=== PATIENT | female | born 1990 ===

== ENCOUNTER 2018-08-22 01:59 | Inpatient (IN) | payer OTHER ==
[2018-08-22] MEDS ORDERED: Sodium Chloride 0.9% 2.5 ML Syringe FLUSH PRN (03:02)
[2018-08-22] MEDS ORDERED: Tranexamic Acid 1,000 MG in Sodium Chloride 0.9% 100 ML IV PRN (03:02)
[2018-08-22] MEDS ORDERED: Carboprost Tromethamine 250 MCG/1 ML Amp IM PRN (03:02)
[2018-08-22] MEDS ORDERED: Sodium Chloride 0.9% 10 ML SDV IV PRN (03:02)
[2018-08-22] MEDS ORDERED: Sodium Chloride 0.9% 10 ML Syringe FLUSH PRN (03:02)
[2018-08-22] MEDS ORDERED: Misoprostol 200 MCG Tab PO PRN (03:02)
[2018-08-22] MEDS ORDERED: Butorphanol 1 MG/ML SDV IVPUSH PRN (03:02)
[2018-08-22] MEDS ORDERED: Nalbuphine 10 MG/1 ML Vial IVPUSH PRN (03:02)
[2018-08-22] MEDS ORDERED: Lidocaine 1% 50 ML MDV INJECT PRN (03:02)
[2018-08-22] MEDS ORDERED: Terbutaline 1 MG/ML SDV SUBCUT PRN (03:02)
[2018-08-22] MEDS ORDERED: Methylergonovine 0.2 MG/1 ML Amp IM PRN (03:02)
[2018-08-22] MEDS ORDERED: Water For Irrigation,Sterile 1,000 ML Container IRR PRN (03:02)
[2018-08-22] MEDS ORDERED: Ampicillin 2 GM in Sodium Chloride 0.9% 100 ML IV ONE (03:02)
[2018-08-22] MEDS ORDERED: Misoprostol 25 MCG (1/4 of 100 MCG) Tab VAG PRN ×2 (03:02)
[2018-08-22] MEDS ORDERED: Misoprostol 50 MCG (1/2 of 100 MCG) Tab VAG ONE (03:05)
[2018-08-22] MEDS ORDERED: Oxytocin/0.9 % Sodium Chloride 30 UNIT/500 ML BAG IV SCH ×2 (03:15)
[2018-08-22] MEDS: Lactated Ringers 1,000 ML IV SCH ×2 (03:35→04:48)
--- NOTE | 2018-08-22 04:30 | PCM.LDHP ---
L&D History of Present Illness - General Date of Service: 08/22/18 Admit Problem/Dx: Patient Status Order with Admit Dx/Problem 08/22/18 03:02 Patient Status [ADT] Routine Admission Diagnosis/Problem Admission Diagnosis/Problem Source of Information: Patient History Limitations: Reports: No Limitations - History of Present Illness Pain Score: 10 Improves with: Reports: None Worsens with: Reports: None Associated Symptoms: Reports: N - Related Data Allergies/Adverse Reactions: Allergies Allergy/AdvReac Type Severity Reaction Status Date / Time No Known Allergies Allergy Verified 08/22/18 03:17 H&P Review of Systems - Review of Systems: Review Of Systems: See Below General: Reports: No Symptoms HEENT: Reports: No Symptoms Pulmonary: Reports: No Symptoms Cardiovascular: Reports: No Symptoms Gastrointestinal: Reports: No Symptoms Genitourinary: Reports: No Symptoms Musculoskeletal: Reports: No Symptoms Skin: Reports: No Symptoms Psychiatric: Reports: No Symptoms Neurological: Reports: No Symptoms Hematologic/Lymphatic: Reports: No Symptoms Immunologic: Reports: No Symptoms L&D Exam - Exam Exam: See Below - Vital Signs Weight: 92.986 kg - OB Specific Fundal Height In cm: 37 Contraction Intensity: Moderate Movement: Active Heart Tones: Present Presentation: Vertex - Rivas Score Rivas Score Cervix Position: Anterior Rivas Score Consistency: Medium Rivas Score Effacement: 51-70% Rivas Score Dilation: 3-4 cm Rivas Score 's Station: -3 Rivas Score Total: 7 - Exam General: Alert, Oriented HEENT: PERRLA, Conjunctiva Clear, EACs Clear, EOMI, Hearing Intact, Mucosa Moist & [place], Nares Patent, Normal Nasal Septum, Posterior Pharynx Clear, TMs Clear Neck: Supple, Trachea Midline Lungs: Clear to Auscultation, Normal Respiratory Effort Cardiovascular: Regular Rate, Regular Rhythm GI/Abdominal Exam: Normal Bowel Sounds, Soft, Non-Tender, No Organomegaly, No Distention, No Abnormal Bruit, No Mass, Pelvis Stable Rectal Exam: Normal Exam, Normal Rectal Tone Genitourinary: Normal external exam, Normal bimanual exam, Normal speculum exam Back Exam: Normal Inspection, Full Range of Motion Extremities: Normal Inspection, Normal Range of Motion, Non-Tender, No Pedal Edema, Normal Capillary Refill Skin: Warm, Dry, Intact Neurological: Cranial Nerves Intact, Reflexes Equal Bilateral Psychiatric: Alert, Normal Affect, Normal Mood - Patient Data Lab Results Last 24 hrs: Laboratory Results - last 24 hr 08/22/18 Range/Units 03:25 WBC 10.03 (4.0-11.0) K/uL RBC 4.22 L (4.30-5.90) M/uL Hgb 12.5 (12.0-16.0) g/dL Hct 37.2 (36.0-46.0) % MCV 88.2 (80.0-98.0) fL MCH 29.6 (27.0-32.0) pg MCHC 33.6 (31.0-37.0) g/dL RDW Std Deviation 45.1 (28.0-62.0) fl RDW Coeff of [place] 14 (11.0-15.0) % Plt Count 244 (150-400) K/uL MPV 10.60 (7.40-12.00) fL Nucleated RBC % 0.0 /100WBC Nucleated RBCs # 0 K/uL Result Diagrams: 08/22/18 03:25 Problem List Initiated/Reviewed/Updated: Yes Orders Last 24hrs: Active Orders 24 hr Category Date Time Status Patient Status [ADT] Routine ADT 08/22/18 03:02 Active Bedrest Bathroom Privileges [RC] ASDIRECTED Care 08/22/18 03:02 Active Communication Order [RC] ASDIRECTED Care 08/22/18 03:02 Active Communication Order [RC] ASDIRECTED Care 08/22/18 03:02 Active Communication Order [RC] ASDIRECTED Care 08/22/18 03:02 Active Heart Tones [RC] CONTINUOUS Care 08/22/18 03:02 Active Non Stress Test [RC] PER UNIT ROUTINE Care 08/22/18 03:02 Active May Shower [RC] ASDIRECTED Care 08/22/18 03:02 Active Notify Provider [RC] PRN Care 08/22/18 03:02 Active Notify Provider [RC] PRN Care 08/22/18 03:02 Active Notify Provider [RC] PRN Care 08/22/18 03:02 Active Notify Provider [RC] STAT Care 08/22/18 03:02 Active Oxygen Therapy [RC] ASDIRECTED Care 08/22/18 03:02 Active Up ad Swathi [RC] ASDIRECTED Care 08/22/18 03:02 Active Vaginal Exam [RC] PRN Care 08/22/18 03:02 Active Vaginal Exam [RC] PRN Care 08/22/18 03:02 Active Vital Signs [RC] PER UNIT ROUTINE Care 08/22/18 03:02 Active Vital Signs [RC] PER UNIT ROUTINE Care 08/22/18 03:02 Active TYPE AND SCREEN [BBK] Routine Lab 08/22/18 03:25 Received Ampicillin 1 gm Med 08/22/18 07:00 Active Sodium Chloride 0.9% [Normal Saline] 50 ml IV Q4H Butorphanol [Stadol] Med 08/22/18 03:02 Active 1 mg IVPUSH Q1H PRN Carboprost Tromethamine [Hemabate DS] Med 08/22/18 03:02 Active 250 mcg IM ASDIRECTED PRN Lactated Ringers [Ringers, Lactated] 1,000 ml Med 08/22/18 03:15 Active IV ASDIRECTED Lidocaine 1% [Xylocaine 1%] Med 08/22/18 03:02 Active 50 ml INJECT ONETIME PRN Methylergonovine [Methergine] Med 08/22/18 03:02 Active 0.2 mg IM ASDIRECTED PRN Nalbuphine [Nubain] Med 08/22/18 03:02 Active 10 mg IVPUSH Q1H PRN Oxytocin/0.9 % Sodium Chloride [Oxytocin 30 Unit/500 ML Med 08/22/18 03:15 Active -NS] 30 unit in 500 ml IV TITRATE Oxytocin/0.9 % Sodium Chloride [Oxytocin 30 Unit/500 ML Med 08/22/18 03:15 Active -NS] 30 unit in 500 ml IV TITRATE Sodium Chloride 0.9% [Normal Saline] Med 08/22/18 03:02 Active 10 ml IV ASDIRECTED PRN Sodium Chloride 0.9% [Saline Flush] Med 08/22/18 03:02 Active 10 ml FLUSH ASDIRECTED PRN Sodium Chloride 0.9% [Saline Flush] Med 08/22/18 03:02 Active 2.5 ml FLUSH ASDIRECTED PRN Terbutaline [Brethine] Med 08/22/18 03:02 Active 0.25 mg SUBCUT ASDIRECTED PRN Tranexamic Acid [Cyklokapron] 1,000 mg Med 08/22/18 03:02 Active Sodium Chloride 0.9% [Normal Saline] 100 ml IV ONETIME Water For Irrigation,Sterile [Sterile Water for Med 08/22/18 03:02 Active Irrigation] 1,000 ml IRR ASDIRECTED PRN miSOPROStol [Cytotec] Med 08/22/18 03:02 Active 200 mcg PO ONETIME PRN miSOPROStol [Cytotec] Med 08/22/18 03:02 Active 25 mcg VAG ONETIME PRN miSOPROStol [Cytotec] Med 08/22/18 07:15 Active 25 mcg VAG Q4H miSOPROStol [Cytotec] Med 08/22/18 03:02 Active 25 mcg VAG Q4H PRN Scalp Electrode [WOMSER] Per Unit Routine Oth 08/22/18 03:02 Ordered Medication Administration Instruction [OM.PC] Q3H Oth 08/22/18 03:15 Ordered Peripheral IV Insertion Adult [OM.PC] Routine Oth 08/22/18 03:02 Ordered Resuscitation Status Routine Resus Stat 08/22/18 03:02 Ordered Medication Orders Butorphanol Tartrate (Stadol) 1 mg IVPUSH Q1H PRN PRN Reason: Pain Last Admin: 08/22/18 03:36 Dose: 1 mg Carboprost Tromethamine (Hemabate Ds) 250 mcg IM ASDIRECTED PRN PRN Reason: Post Hemorrhage Ampicillin Sodium 1 gm/ Sodium (Chloride) 50 mls @ 100 mls/hr IV Q4H [facility] Lactated Ringer's (Ringers, Lactated) 1,000 mls @ 150 mls/hr IV ASDIRECTED [facility] Last Admin: 08/22/18 03:35 Dose: 150 mls/hr Oxytocin/Sodium Chloride (Oxytocin 30 Unit/500 Ml-Ns) 30 unit in 500 mls @ 555 mls/hr IV TITRATE [facility] Oxytocin/Sodium Chloride (Oxytocin 30 Unit/500 Ml-Ns) 30 unit in 500 mls @ 2 mls/hr IV TITRATE [facility]; Protocol Tranexamic Acid 1,000 mg/ (Sodium Chloride) 110 mls @ 660 mls/hr IV ONETIME PRN PRN Reason: Bleeding Lidocaine HCl (Xylocaine 1%) 50 ml INJECT ONETIME PRN PRN Reason: Laceration repair Methylergonovine Maleate (Methergine) 0.2 mg IM ASDIRECTED PRN PRN Reason: Post Hemorrhage Misoprostol (Cytotec) 200 mcg PO ONETIME PRN PRN Reason: Post Hemorrhage Misoprostol (Cytotec) 25 mcg VAG ONETIME PRN PRN Reason: Cervical Ripening Misoprostol (Cytotec) 25 mcg VAG Q4H PRN PRN Reason: Cervical Ripening Misoprostol (Cytotec) 25 mcg VAG Q4H [facility] Nalbuphine HCl (Nubain) 10 mg IVPUSH Q1H PRN PRN Reason: Pain (severe 7-10) Sodium Chloride (Saline Flush) 10 ml FLUSH ASDIRECTED PRN PRN Reason: Keep Vein Open Sodium Chloride (Saline Flush) 2.5 ml FLUSH ASDIRECTED PRN PRN Reason: Keep Vein Open Sodium Chloride (Normal Saline) 10 ml IV ASDIRECTED PRN PRN Reason: IV Use Sterile Water (Sterile Water For Irrigation) 1,000 ml IRR ASDIRECTED PRN PRN Reason: delivery Terbutaline Sulfate (Brethine) 0.25 mg SUBCUT ASDIRECTED PRN PRN Reason: Tacysystole Assessment/Plan Comment:: 38wks in early labor. SROM in early active labor.
[2018-08-22] MEDS ORDERED: Ropivacaine HCl/PF 100 ML ONE (05:26)
[2018-08-22] MEDS ORDERED: fentaNYL 100 MCG/2 ML SDV ONE (05:27)
[2018-08-22] MEDS ORDERED: Lidocaine HCl/EPINEPHrine 5 ML IJ ONE (05:27)
[2018-08-22] MEDS ORDERED: Ropivacaine 0.2% 2 MG/ML 20 ML SDV ONE (05:27)
--- NOTE | 2018-08-22 06:35 | PCM.PREANE ---
Preanesthetic Assessment - Anesthesia/Transfusion/Family Hx Anesthesia History: No Prior Anesthesia Family History of Anesthesia Reaction: No - Review of Systems General: No Symptoms Pulmonary: No Symptoms Cardiovascular: No Symptoms Gastrointestinal: No Symptoms Neurological: No Symptoms Other: Reports: None (Denies any personal or family hx of bleeding or clotting problems) - Physical Assessment Height: 1.73 m Weight: 92.986 kg ASA Class: 2 Mental Status: Alert & Oriented x3 Dentition: Reports: Normal Dentition ROM/Head Extension: Full - Lab Values: Laboratory Last Values WBC 10.03 K/uL (4.0-11.0) 08/22/18 03:25 RBC 4.22 M/uL (4.30-5.90) L 08/22/18 03:25 Hgb 12.5 g/dL (12.0-16.0) 08/22/18 03:25 Hct 37.2 % (36.0-46.0) 08/22/18 03:25 MCV 88.2 fL (80.0-98.0) 08/22/18 03:25 MCH 29.6 pg (27.0-32.0) 08/22/18 03:25 MCHC 33.6 g/dL (31.0-37.0) 08/22/18 03:25 RDW Std Deviation 45.1 fl (28.0-62.0) 08/22/18 03:25 RDW Coeff of [place] 14 % (11.0-15.0) 08/22/18 03:25 Plt Count 244 K/uL (150-400) 08/22/18 03:25 MPV 10.60 fL (7.40-12.00) 08/22/18 03:25 Nucleated RBC % 0.0 /100WBC 08/22/18 03:25 Nucleated RBCs # 0 K/uL 08/22/18 03:25 Blood Type O POSITIVE 08/22/18 03:25 Antibody Screen NEGATIVE 08/22/18 03:25 - Allergies Allergies/Adverse Reactions: Allergies Allergy/AdvReac Type Severity Reaction Status Date / Time No Known Allergies Allergy Verified 08/22/18 03:17 - Anesthesia Plan Free Text/Narrative:: Patient is continually screaming and out of control and very difficult to talk to. She understands that this epidural cannot be done if she cannot sit still and importance of safety stressed to patient. - Acknowledgements Anesthesia Type Planned: Epidural Pt an Appropriate Candidate for the Planned Anesthesia: Yes Alternatives and Risks of Anesthesia Discussed w Pt/Guardian: Yes Pt/Guardian Understands and Agrees with Anesthesia Plan: Yes PreAnesthesia Questionnaire - CURRENT (IN HOUSE) MEDS Current Meds: Current Medications Butorphanol Tartrate (Stadol) 1 mg IVPUSH Q1H PRN PRN Reason: Pain Last Admin: 08/22/18 03:36 Dose: 1 mg Carboprost Tromethamine (Hemabate Ds) 250 mcg IM ASDIRECTED PRN PRN Reason: Post Hemorrhage Ampicillin Sodium 1 gm/ Sodium (Chloride) 50 mls @ 100 mls/hr IV Q4H [facility] Lactated Ringer's (Ringers, Lactated) 1,000 mls @ 150 mls/hr IV ASDIRECTED [facility] Last Admin: 08/22/18 04:48 Dose: 999 mls/hr Oxytocin/Sodium Chloride (Oxytocin 30 Unit/500 Ml-Ns) 30 unit in 500 mls @ 555 mls/hr IV TITRATE [facility] Oxytocin/Sodium Chloride (Oxytocin 30 Unit/500 Ml-Ns) 30 unit in 500 mls @ 2 mls/hr IV TITRATE [facility]; Protocol Tranexamic Acid 1,000 mg/ (Sodium Chloride) 110 mls @ 660 mls/hr IV ONETIME PRN PRN Reason: Bleeding Lidocaine HCl (Xylocaine 1%) 50 ml INJECT ONETIME PRN PRN Reason: Laceration repair Methylergonovine Maleate (Methergine) 0.2 mg IM ASDIRECTED PRN PRN Reason: Post Hemorrhage Misoprostol (Cytotec) 200 mcg PO ONETIME PRN PRN Reason: Post Hemorrhage Misoprostol (Cytotec) 25 mcg VAG ONETIME PRN PRN Reason: Cervical Ripening Misoprostol (Cytotec) 25 mcg VAG Q4H PRN PRN Reason: Cervical Ripening Misoprostol (Cytotec) 25 mcg VAG Q4H [facility] Nalbuphine HCl (Nubain) 10 mg IVPUSH Q1H PRN PRN Reason: Pain (severe 7-10) Last Admin: 08/22/18 04:48 Dose: 10 mg Sodium Chloride (Saline Flush) 10 ml FLUSH ASDIRECTED PRN PRN Reason: Keep Vein Open Sodium Chloride (Saline Flush) 2.5 ml FLUSH ASDIRECTED PRN PRN Reason: Keep Vein Open Sodium Chloride (Normal Saline) 10 ml IV ASDIRECTED PRN PRN Reason: IV Use Sterile Water (Sterile Water For Irrigation) 1,000 ml IRR ASDIRECTED PRN PRN Reason: delivery Terbutaline Sulfate (Brethine) 0.25 mg SUBCUT ASDIRECTED PRN PRN Reason: Tacysystole Discontinued Medications Fentanyl (Sublimaze) Confirm Administered Dose 300 mcg .ROUTE .STK-MED ONE Stop: 08/22/18 05:28 Ampicillin Sodium 2 gm/ Sodium (Chloride) 100 mls @ 200 mls/hr IV ONETIME ONE Stop: 08/22/18 03:31 Last Admin: 08/22/18 03:44 Dose: 200 mls/hr Ropivacaine (Naropin 0.2%) Confirm Administered Dose 100 mls @ as directed .ROUTE .STK-MED ONE Stop: 08/22/18 05:27 Lidocaine/Epinephrine (Lidocaine 1.5%-Epi 1:200,000) Confirm Administered Dose 5 ml IJ .STK-MED ONE Stop: 08/22/18 05:28 Misoprostol (Cytotec) 25 mcg VAG ONETIME ONE Stop: 08/22/18 03:06 Ropivacaine (Naropin 0.2%) Confirm Administered Dose 20 ml .ROUTE .STK-MED ONE Stop: 08/22/18 05:28
[2018-08-22] MEDS ORDERED: Docusate Sodium 100 MG Cap PO PRN (07:26)
[2018-08-22] MEDS ORDERED: Bisacodyl 10 MG Supp RECTAL PRN (07:26)
[2018-08-22] MEDS ORDERED: oxyCODONE 5 MG Tab PO PRN (07:26)
[2018-08-22] MEDS ORDERED: Ibuprofen 400 MG Tab PO PRN (07:26)
--- NOTE | 2018-08-22 08:24 | OR ---
SURGEON: Nawaf Cedillo MD DATE OF PROCEDURE: Ms. Walker is 28-year-old. She is para 1-0-0-1. She followed most of her in the [facility]. The patient transferred her care to us recently. I only saw her in the office 1 time, and at that time, we did a GBS status. I reviewed her record. Her record was adequate. The patient is 37 plus weeks. She has presented to Labor and Delivery with a spontaneous rupture of the membrane which is confirmed and regular contraction. Since GBS status at the time of admission could not be confirmed, the patient was started on antibiotic appropriately, and at the time of admission, she was 3 cm, complete vertex, and -2. She had epidural anesthesia for labor analgesia. She was able then to progress to complete, complete, +2. The patient had a very dense epidural. She was unable to push adequately, so I helped the patient using the Kiwi vacuum extraction. With her minimum pushing and me pulling, we were able to accomplish normal spontaneous vaginal delivery of a male fetus, cried immediately. score reported to be 8 and 9 and weight is not available at this time. The placenta delivered spontaneous, complete, and intact without any problem and there was no perineal, labial laceration. Episiotomy was not needed. Estimated blood loss was 250 to 300 mL. heart rate was category I through the entire process of labor. There was no complication in the labor and delivery process. SAMIR / JOSE /[id number]
[2018-08-22] MEDS: Ibuprofen 800 MG Tab PO PRN ×2 (09:42→19:55)
[2018-08-22] MEDS: Acetaminophen 500 MG Tab PO PRN (09:43)
[2018-08-22] MEDS: Benzocaine/Menthol 20%-0.5% Spray 78 GM Cannister TOP PRN (13:05)
[2018-08-22] MEDS: Witch Hazel Medicated Pads 40/Jar TOP PRN (13:06)
[2018-08-22] MEDS: Misoprostol 50 MCG (1/2 of 100 MCG) Tab VAG SCH ×3 (19:12→20:23)
[2018-08-22] MEDS: Ampicillin 1 GM in Sodium Chloride 0.9% 50 ML IV SCH (19:12)
[2018-08-22] MEDS: Lanolin 100% Cream 7 GM Tube TOP PRN (19:56)
[2018-08-23] MEDS: Ampicillin 1 GM in Sodium Chloride 0.9% 50 ML IV SCH (01:46)
[2018-08-23] MEDS: Misoprostol 50 MCG (1/2 of 100 MCG) Tab VAG SCH (01:47)
--- NOTE | 2018-08-23 09:13 | PCM.DCSUM1 ---
Discharge Summary - Hospital Course Diagnosis: Stroke: No - Discharge Data Discharge Date: 08/23/18 Discharge Disposition: Home, Self-Care 01 Condition: Good - Patient Instructions Diet: Usual Diet as Tolerated Driving: Do Not Drive Showering/Bathing: October Shower - Discharge Plan Referrals: Wily Malik,Alyson [Ordering Only Provider] - Nawaf Cedillo MD [Physician] - 10/03/18 10:45 am - Discharge Summary/Plan Comment DC Time >30 min.: Yes - General Info Date of Service: 08/23/18 Functional Status: Reports: Pain Controlled - Review of Systems General: Reports: No Symptoms HEENT: Reports: No Symptoms Pulmonary: Reports: No Symptoms Cardiovascular: Reports: No Symptoms Gastrointestinal: Reports: No Symptoms Genitourinary: Reports: No Symptoms Musculoskeletal: Reports: No Symptoms Skin: Reports: No Symptoms Neurological: Reports: No Symptoms Psychiatric: Reports: No Symptoms - Patient Data Vitals - Most Recent: Last Vital Signs Temp 36.8 C 08/23/18 04:26 Pulse 66 08/23/18 07:42 Resp 18 08/23/18 07:42 BP 122/58 L 08/23/18 07:42 Pulse Ox 96 08/23/18 07:42 Weight - Most Recent: 92.986 kg Med Orders - Current: Current Medications Acetaminophen (Tylenol Extra Strength) 500 mg PO Q4H PRN PRN Reason: Pain Last Admin: 08/22/18 09:43 Dose: 500 mg Acetaminophen (Tylenol Extra Strength) 1,000 mg PO Q4H PRN PRN Reason: Pain Benzocaine/Menthol (Dermoplast Pain Relief 20%-0.5% [place]) 78 gm TOP ASDIRECTED PRN PRN Reason: Perineal Comfort Measure Last Admin: 08/22/18 13:05 Dose: 1 tub Bisacodyl (Dulcolax) 10 mg RECTAL ONETIME PRN PRN Reason: Constipation Butorphanol Tartrate (Stadol) 1 mg IVPUSH Q1H PRN PRN Reason: Pain Last Admin: 08/22/18 03:36 Dose: 1 mg Carboprost Tromethamine (Hemabate Ds) 250 mcg IM ASDIRECTED PRN PRN Reason: Post Hemorrhage Docusate Sodium (Colace) 100 mg PO BID PRN PRN Reason: Constipation Emollient Ointment (Lansinoh Hpa) 0 gm TOP ASDIRECTED PRN PRN Reason: Sore Nipples Last Admin: 08/22/18 19:56 Dose: 1 tube Ampicillin Sodium 1 gm/ Sodium (Chloride) 50 mls @ 100 mls/hr IV Q4H [facility] Last Admin: 08/23/18 01:46 Dose: Not Given Lactated Ringer's (Ringers, Lactated) 1,000 mls @ 150 mls/hr IV ASDIRECTED [facility] Last Admin: 08/22/18 04:48 Dose: 999 mls/hr Oxytocin/Sodium Chloride (Oxytocin 30 Unit/500 Ml-Ns) 30 unit in 500 mls @ 555 mls/hr IV TITRATE [facility] Last Admin: 08/22/18 07:22 Dose: 555 mls/hr Oxytocin/Sodium Chloride (Oxytocin 30 Unit/500 Ml-Ns) 30 unit in 500 mls @ 2 mls/hr IV TITRATE [facility]; Protocol Tranexamic Acid 1,000 mg/ (Sodium Chloride) 110 mls @ 660 mls/hr IV ONETIME PRN PRN Reason: Bleeding Ibuprofen (Motrin) 400 mg PO Q4H PRN PRN Reason: Pain Ibuprofen (Motrin) 800 mg PO Q6H PRN PRN Reason: Pain Last Admin: 08/22/18 19:55 Dose: 800 mg Lidocaine HCl (Xylocaine 1%) 50 ml INJECT ONETIME PRN PRN Reason: Laceration repair Methylergonovine Maleate (Methergine) 0.2 mg IM ASDIRECTED PRN PRN Reason: Post Hemorrhage Misoprostol (Cytotec) 200 mcg PO ONETIME PRN PRN Reason: Post Hemorrhage Misoprostol (Cytotec) 25 mcg VAG ONETIME PRN PRN Reason: Cervical Ripening Misoprostol (Cytotec) 25 mcg VAG Q4H PRN PRN Reason: Cervical Ripening Misoprostol (Cytotec) 25 mcg VAG Q4H [facility] Last Admin: 08/23/18 01:47 Dose: Not Given Nalbuphine HCl (Nubain) 10 mg IVPUSH Q1H PRN PRN Reason: Pain (severe 7-10) Last Admin: 08/22/18 04:48 Dose: 10 mg Oxycodone HCl (Oxycodone) 5 mg PO Q2H PRN PRN Reason: Pain Sodium Chloride (Saline Flush) 10 ml FLUSH ASDIRECTED PRN PRN Reason: Keep Vein Open Sodium Chloride (Saline Flush) 2.5 ml FLUSH ASDIRECTED PRN PRN Reason: Keep Vein Open Sodium Chloride (Normal Saline) 10 ml IV ASDIRECTED PRN PRN Reason: IV Use Sterile Water (Sterile Water For Irrigation) 1,000 ml IRR ASDIRECTED PRN PRN Reason: delivery Terbutaline Sulfate (Brethine) 0.25 mg SUBCUT ASDIRECTED PRN PRN Reason: Tacysystole Witch Sherry (Tucks) 1 pad TOP ASDIRECTED PRN PRN Reason: comfort care Last Admin: 08/22/18 13:06 Dose: 1 tub Discontinued Medications Fentanyl (Sublimaze) Confirm Administered Dose 300 mcg .ROUTE .STK-MED ONE Stop: 08/22/18 05:28 Last Admin: 08/22/18 19:12 Dose: Not Given Ampicillin Sodium 2 gm/ Sodium (Chloride) 100 mls @ 200 mls/hr IV ONETIME ONE Stop: 08/22/18 03:31 Last Admin: 08/22/18 03:44 Dose: 200 mls/hr Ropivacaine (Naropin 0.2%) Confirm Administered Dose 100 mls @ as directed .ROUTE .STK-MED ONE Stop: 08/22/18 05:27 Last Admin: 08/22/18 19:11 Dose: Not Given Lidocaine/Epinephrine (Lidocaine 1.5%-Epi 1:200,000) Confirm Administered Dose 5 ml IJ .STK-MED ONE Stop: 08/22/18 05:28 Last Admin: 08/22/18 19:11 Dose: Not Given Misoprostol (Cytotec) 25 mcg VAG ONETIME ONE Stop: 08/22/18 03:06 Last Admin: 08/22/18 19:11 Dose: Not Given Ropivacaine (Naropin 0.2%) Confirm Administered Dose 20 ml .ROUTE .STK-MED ONE Stop: 08/22/18 05:28 Last Admin: 08/22/18 19:12 Dose: Not Given - Exam General: Reports: Alert, Oriented HEENT: Reports: Pupils Equal, Pupils Reactive, EOMI, Mucous Membr. Moist/[place] Neck: Reports: Supple Lungs: Reports: Clear to Auscultation, Normal Respiratory Effort Cardiovascular: Reports: Regular Rate, Regular Rhythm GI/Abdominal Exam: Normal Bowel Sounds, Soft, Non-Tender, No Organomegaly, No Distention, No Abnormal Bruit, No Mass, Pelvis Stable (Female) Exam: Normal External Exam, Normal Speculum Exam, Normal Bimanual Exam Rectal (Female) Exam: Normal Exam, Normal Rectal Tone Back Exam: Reports: Normal Inspection, Full Range of Motion Extremities: Normal Inspection, Normal Range of Motion, Non-Tender, No Pedal Edema, Normal Capillary Refill Skin: Reports: Warm, Dry, Intact Wound/Incisions: Reports: Healing Well Neurological: Reports: No New Focal Deficit Psy/Mental Status: Reports: Alert, Normal Affect, Normal Mood
[2018-08-23] MEDS: Acetaminophen 500 MG Tab PO PRN ×2 (10:33→23:16)
[2018-08-23] MEDS: Ibuprofen 800 MG Tab PO PRN ×2 (16:46→23:15)
--- NOTE | 2018-08-23 16:46 | PCM48HPAN ---
Post Anesthesia Note - EVALUATION WITHIN 48HRS OF ANESTHETIC Vital Signs in Normal Range: Yes Patient Participated in Evaluation: Yes Respiratory Function Stable: Yes Airway Patent: Yes Cardiovascular Function Stable: Yes Hydration Status Stable: Yes Pain Control Satisfactory: Yes Nausea and Vomiting Control Satisfactory: Yes Mental Status Recovered: Yes Resp Rate: 18 - COMMENTS/OBSERVATIONS Free Text/Narrative:: no anesthesia problems
[2018-08-24] MEDS: Acetaminophen 500 MG Tab PO PRN (07:47)
--- NOTE | 2018-08-24 08:38 | PCM.PNPP ---
- General Info Date of Service: 08/24/18 Functional Status: Reports: Pain Controlled - Review of Systems General: Reports: No Symptoms HEENT: Reports: No Symptoms Pulmonary: Reports: No Symptoms Cardiovascular: Reports: No Symptoms Gastrointestinal: Reports: No Symptoms Genitourinary: Reports: No Symptoms Musculoskeletal: Reports: No Symptoms Skin: Reports: No Symptoms Neurological: Reports: No Symptoms Psychiatric: Reports: No Symptoms - General Info Date of Service: 08/24/18 - Patient Data Vital Signs - Most Recent: Last Vital Signs Temp 36.3 C 08/24/18 08:14 Pulse 60 08/24/18 08:14 Resp 18 08/24/18 08:14 BP 141/78 H 08/24/18 08:14 Pulse Ox 98 08/24/18 08:14 Weight - Most Recent: 92.986 kg Lab Results - Last 24 Hours: Laboratory Results - last 24 hr 08/23/18 Range/Units 06:00 Hgb 11.0 L (12.0-16.0) g/dL Hct 32.9 L (36.0-46.0) % Med Orders - Current: Current Medications Acetaminophen (Tylenol Extra Strength) 500 mg PO Q4H PRN PRN Reason: Pain Last Admin: 08/23/18 10:33 Dose: 500 mg Acetaminophen (Tylenol Extra Strength) 1,000 mg PO Q4H PRN PRN Reason: Pain Last Admin: 08/24/18 07:47 Dose: 1,000 mg Benzocaine/Menthol (Dermoplast Pain Relief 20%-0.5% [place]) 78 gm TOP ASDIRECTED PRN PRN Reason: Perineal Comfort Measure Last Admin: 08/22/18 13:05 Dose: 1 tub Bisacodyl (Dulcolax) 10 mg RECTAL ONETIME PRN PRN Reason: Constipation Butorphanol Tartrate (Stadol) 1 mg IVPUSH Q1H PRN PRN Reason: Pain Last Admin: 08/22/18 03:36 Dose: 1 mg Carboprost Tromethamine (Hemabate Ds) 250 mcg IM ASDIRECTED PRN PRN Reason: Post Hemorrhage Docusate Sodium (Colace) 100 mg PO BID PRN PRN Reason: Constipation Emollient Ointment (Lansinoh Hpa) 0 gm TOP ASDIRECTED PRN PRN Reason: Sore Nipples Last Admin: 08/22/18 19:56 Dose: 1 tube Ampicillin Sodium 1 gm/ Sodium (Chloride) 50 mls @ 100 mls/hr IV Q4H [facility] Last Admin: 08/23/18 01:46 Dose: Not Given Lactated Ringer's (Ringers, Lactated) 1,000 mls @ 150 mls/hr IV ASDIRECTED [facility] Last Admin: 08/22/18 04:48 Dose: 999 mls/hr Oxytocin/Sodium Chloride (Oxytocin 30 Unit/500 Ml-Ns) 30 unit in 500 mls @ 555 mls/hr IV TITRATE [facility] Last Admin: 08/22/18 07:22 Dose: 555 mls/hr Oxytocin/Sodium Chloride (Oxytocin 30 Unit/500 Ml-Ns) 30 unit in 500 mls @ 2 mls/hr IV TITRATE [facility]; Protocol Tranexamic Acid 1,000 mg/ (Sodium Chloride) 110 mls @ 660 mls/hr IV ONETIME PRN PRN Reason: Bleeding Ibuprofen (Motrin) 400 mg PO Q4H PRN PRN Reason: Pain Ibuprofen (Motrin) 800 mg PO Q6H PRN PRN Reason: Pain Last Admin: 08/23/18 23:15 Dose: 800 mg Lidocaine HCl (Xylocaine 1%) 50 ml INJECT ONETIME PRN PRN Reason: Laceration repair Methylergonovine Maleate (Methergine) 0.2 mg IM ASDIRECTED PRN PRN Reason: Post Hemorrhage Misoprostol (Cytotec) 200 mcg PO ONETIME PRN PRN Reason: Post Hemorrhage Misoprostol (Cytotec) 25 mcg VAG ONETIME PRN PRN Reason: Cervical Ripening Misoprostol (Cytotec) 25 mcg VAG Q4H PRN PRN Reason: Cervical Ripening Misoprostol (Cytotec) 25 mcg VAG Q4H [facility] Last Admin: 08/23/18 01:47 Dose: Not Given Nalbuphine HCl (Nubain) 10 mg IVPUSH Q1H PRN PRN Reason: Pain (severe 7-10) Last Admin: 08/22/18 04:48 Dose: 10 mg Oxycodone HCl (Oxycodone) 5 mg PO Q2H PRN PRN Reason: Pain Last Admin: 08/23/18 10:34 Dose: 5 mg Sodium Chloride (Saline Flush) 10 ml FLUSH ASDIRECTED PRN PRN Reason: Keep Vein Open Sodium Chloride (Saline Flush) 2.5 ml FLUSH ASDIRECTED PRN PRN Reason: Keep Vein Open Sodium Chloride (Normal Saline) 10 ml IV ASDIRECTED PRN PRN Reason: IV Use Sterile Water (Sterile Water For Irrigation) 1,000 ml IRR ASDIRECTED PRN PRN Reason: delivery Terbutaline Sulfate (Brethine) 0.25 mg SUBCUT ASDIRECTED PRN PRN Reason: Tacysystole Witch Sherry (Tucks) 1 pad TOP ASDIRECTED PRN PRN Reason: comfort care Last Admin: 08/22/18 13:06 Dose: 1 tub Discontinued Medications Fentanyl (Sublimaze) Confirm Administered Dose 300 mcg .ROUTE .STK-MED ONE Stop: 08/22/18 05:28 Last Admin: 08/22/18 19:12 Dose: Not Given Ampicillin Sodium 2 gm/ Sodium (Chloride) 100 mls @ 200 mls/hr IV ONETIME ONE Stop: 08/22/18 03:31 Last Admin: 08/22/18 03:44 Dose: 200 mls/hr Ropivacaine (Naropin 0.2%) Confirm Administered Dose 100 mls @ as directed .ROUTE .STK-MED ONE Stop: 08/22/18 05:27 Last Admin: 08/22/18 19:11 Dose: Not Given Lidocaine/Epinephrine (Lidocaine 1.5%-Epi 1:200,000) Confirm Administered Dose 5 ml IJ .STK-MED ONE Stop: 08/22/18 05:28 Last Admin: 08/22/18 19:11 Dose: Not Given Misoprostol (Cytotec) 25 mcg VAG ONETIME ONE Stop: 08/22/18 03:06 Last Admin: 08/22/18 19:11 Dose: Not Given Ropivacaine (Naropin 0.2%) Confirm Administered Dose 20 ml .ROUTE .STK-MED ONE Stop: 08/22/18 05:28 Last Admin: 08/22/18 19:12 Dose: Not Given - Infant Interaction Disposition, : [place] in Room with Family Infant Interaction: Holding Infant Feeding: Attempted ; Nursed Fair/Poor Support Person: Significant Other - Recovery Exam Fundal Tone: Firm Fundal Level: 1 Fingerbreadths Below Umbilicus Fundal Placement: Midline Lochia Amount: Scant Lochia Color: Rubra/Red Perineum Description: Intact, Minimal Bruising/Swelling Episiotomy/Laceration: None Bladder Status: Voiding Urinary Elimination: Voided - Exam General: Alert, Oriented HEENT: Pupils Equal Neck: Supple Lungs: Clear to Auscultation, Normal Respiratory Effort Cardiovascular: Regular Rate, Regular Rhythm GI/Abdominal Exam: Normal Bowel Sounds, Soft, Non-Tender, No Organomegaly, No Distention, No Abnormal Bruit, No Mass, Pelvis Stable Extremities: Normal Inspection, Normal Range of Motion, Non-Tender, No Pedal Edema, Normal Capillary Refill Skin: Warm, Dry, Intact Wound/Incisions: Healing Well Neurological: No New Focal Deficit Psy/Mental Status: Alert, Normal Affect, Normal Mood - Problem List Review Problem List Initiated/Reviewed/Updated: Yes - My Orders Last 24 Hours: My Active Orders 08/23/18 09:14 Ready for Discharge [RC] PER UNIT ROUTINE - Assessment Assessment:: S/P doing well - Plan Plan:: 38wks in early labor. SROM in early active labor.
[2018-08-24] MEDS: Benzocaine/Menthol 20%-0.5% Spray 78 GM Cannister TOP PRN (11:33)
[2018-08-24] MEDS: Witch Hazel Medicated Pads 40/Jar TOP PRN (11:34)
[2018-08-24] MEDS: Lanolin 100% Cream 7 GM Tube TOP PRN (11:34)
== END 2018-08-24 12:20 | disposition home or self-care (01) | DRG 806 ==
LOC: MW.OBCHECK 01:59 → MW.OB 02:02 → MW.OBCHECK 03:02 → OBSVTOIN 07:21 → MW.OB 15:55
PROVIDERS: ADMIT Obstetrics & Gynecology; ATTEND Obstetrics & Gynecology
PROC: 10D07Z6 Extraction of Products of Conception, Vacuum, Via Natural or Artificial Opening (ICD-10-PCS; principal; 2018-08-22)
PROC: 00HU33Z Insertion of Infusion Device into Spinal Canal, Percutaneous Approach (ICD-10-PCS; 2018-08-22)
PROC: 3E0R3BZ Introduction of Anesthetic Agent into Spinal Canal, Percutaneous Approach (ICD-10-PCS; 2018-08-22)
DX: O99.344 Other mental disorders complicating childbirth (principal); F31.62 Bipolar disorder, current episode mixed, moderate; Z37.0 Single live birth; Z3A.38 38 weeks gestation of pregnancy
CPT/HCPCS: 01967; 36415; 59025; 59409; 85014; 85018; 85027; 86850; 86900; 86901; A9270-GY; J0290; J0595; J2300; J2590; J2795; J7030; J7120